=== PATIENT | female | born 1995 | race Caucasian/White ===

== ENCOUNTER 2017-04-23 13:05 | Emergency (ER) | payer OTHER ==
[2017-04-23 13:58] VITALS: BP 117/63
[2017-04-23] MEDS ORDERED: NORMAL SALINE 1000 ML 1,000 ML IV ONE (14:34)
[2017-04-23 15:20] LABS: HEMATOCRIT 41.4 % (36.0-47.0); HEMOGLOBIN 14.4 g/dL (12.0-15.5); HGB HCT DIFFERENCE 1.8; LYMPHOCYTES % (AUTO) 14.4 % (13-45); MEAN CORPUSCULAR HEMOGLOBIN 30.6 pg (27.0-33.4); MEAN CORPUSCULAR HGB CONC 34.8 g/dL (32.0-36.0); MEAN CORPUSCULAR VOLUME 88 fl (80-97); RED BLOOD COUNT 4.71 10^6/uL (3.72-5.28); RED CELL DISTRIBUTION WIDTH 13.7 % (11.5-14.0); WHITE BLOOD COUNT 7.9 10^3/uL (4.0-10.5)
[2017-04-23 15:21] LABS: ABSOLUTE LYMPHOCYTES (AUTO) 1.1 10^3/uL (0.5-4.7); ABSOLUTE MONOCYTES (AUTO) 0.5 10^3/uL (0.1-1.4); ABSOLUTE NEUT (AUTO) 6.1 10^3/uL (1.7-8.2); BASOPHILS % (AUTO) 0.3 % (0-2); EOSINOPHILS % (AUTO) 0.3 % (0-6)
--- NOTE | 2017-04-23 15:21 | ER Document Report ---
ED Medical Screen (RME) - General Chief Complaint: Vaginal Bleeding Stated Complaint: VAGINAL BLEEDING,FALL/HEAD INJURY Time Seen by Provider: 04/23/17 14:28 Notes: pt 11wks preg with vaginal bleeding. had syncope also TRAVEL OUTSIDE OF THE [place] IN LAST 30 DAYS: No Past Medical History - Social History Chew tobacco use (# tins/day): No Frequency of alcohol use: None Drug Abuse: None Renal/ Medical History: Denies: Hx Peritoneal Dialysis Physical Exam - Vital signs Vitals: Temp Pulse Resp BP Pulse Ox 98.4 F 81 18 117/63 99 04/23/17 13:54 04/23/17 13:54 04/23/17 13:54 04/23/17 13:54 04/23/17 13:54 Course - Vital Signs Vital signs: Temp Pulse Resp BP Pulse Ox 98.4 F 81 18 117/63 99 04/23/17 13:54 04/23/17 13:54 04/23/17 13:54 04/23/17 13:54 04/23/17 13:54 - Laboratory Result Diagrams: 04/23/17 15:01 04/23/17 15:01
[2017-04-23 15:29] LABS: AMORPHOUS SEDIMENT,URINE TRACE /HPF; APPEARANCE,URINE CLOUDY; BILIRUBIN,URINE NEGATIVE (NEGATIVE); GLUCOSE, URINE NEGATIVE (NEGATIVE); KETONES,URINE NEGATIVE (NEGATIVE); LEUKOCYTE ESTERASE,URINE TRACE (NEGATIVE); NITRITE,URINE NEGATIVE (NEGATIVE); PROTEIN,URINE NEGATIVE (NEGATIVE); URINE SPECIFIC GRAVITY 1.013; UROBILINOGEN,URINE NEGATIVE mg/dL (<2.0)
[2017-04-23 15:37] LABS: ALANINE AMINOTRANSFERASE 26 U/L (9-52); ALBUMIN 4.2 g/dL (3.5-5.0); ALKALINE PHOSPHATASE 39 U/L (38-126); ANION GAP 12 (5-19); ASPARTATE AMINO TRANSFERASE 13 U/L (14-36); BILIRUBIN,DIRECT 0.3 mg/dL (0.0-0.4); BILIRUBIN,TOTAL 0.5 mg/dL (0.2-1.3); BLOOD UREA NITROGEN 4 mg/dL (7-20); CALCIUM 9.6 mg/dL (8.4-10.2); CARBON DIOXIDE 23 mmol/L (22-30); CHLORIDE 101 mmol/L (98-107); CREATININE RESULT 0.51 mg/dL (0.52-1.25); GLUCOSE 74 mg/dL (75-110); POTASSIUM 4.2 mmol/L (3.6-5.0); SODIUM 136.4 mmol/L (137-145)
--- NOTE | 2017-04-23 17:04 | ER Document Report ---
ED GI/ - General Chief Complaint: Vaginal Bleeding Stated Complaint: VAGINAL BLEEDING,FALL/HEAD INJURY Time Seen by Provider: 04/23/17 14:28 Notes: Patient is a 13- who presents emergency department complaining of vaginal bleeding. She denies any vaginal week 22-year-old female pain, discharge, pelvic pain, urinary symptoms. States that she woke up at approximately 12 this afternoon and noticed light spotting when she went to the bathroom. After that she states she went on to her kitchen and she admits that she was nervous and she states that she had an episode of syncope. Patient states she does have a history of vasovagal syncope. States that she remembers hitting her head and her witnessed the fall and that she was out for less than a minute. She denies any nausea, vomiting, abdominal pain, headache, neck pain, altered mental status or confusion. [facility] TRAVEL OUTSIDE OF THE [place] IN LAST 30 DAYS: No Past Medical History - Social History Smoking Status: Never Smoker Chew tobacco use (# tins/day): No Frequency of alcohol use: None Drug Abuse: None Family History: Reviewed & Not Pertinent Patient has suicidal ideation: No Patient has homicidal ideation: No Renal/ Medical History: Denies: Hx Peritoneal Dialysis Review of Systems - Review of Systems Constitutional: No symptoms reported Cardiovascular: No symptoms reported Respiratory: No symptoms reported Gastrointestinal: No symptoms reported Female Genitourinary: See HPI Neurological/Psychological: See HPI -: Yes All other systems reviewed and negative Physical Exam - Vital signs Vitals: Temp Pulse Resp BP Pulse Ox 98.4 F 81 18 117/63 99 04/23/17 13:54 04/23/17 13:54 04/23/17 13:54 04/23/17 13:54 04/23/17 13:54 - Notes Notes: PHYSICAL EXAM GENERAL: Alert, interacts well. HEAD: Normocephalic, atraumatic. NECK: Full range of motion. Supple. Trachea midline. LUNGS: Clear to auscultation bilaterally, no wheezes, rales, or rhonchi. No respiratory distress. HEART: Regular rate and rhythm. No murmurs, gallops, or rubs. ABDOMEN: Soft, nondistended, nontender. No guarding, rebound, or rigidity.. Bowel sounds present in all 4 quadrants. EXTREMITIES: Moves all 4 extremities spontaneously. No edema, radial and dorsalis pedis pulses 2/4 bilaterally. No cyanosis. NEUROLOGICAL: Alert and oriented x4. Normal speech. PSYCH: Normal affect, normal mood. SKIN: Warm, dry, normal turgor. No rashes or lesions noted. Course - Re-evaluation Re-evalutation: 04/23/17 18:34 Patient is a 22-year-old female who is hemodynamically stable, no acute distress and afebrile. CBC without evidence of anemia, leukocytosis. Chemistry stable with a beta-hCG of [id number]. Urinalysis clean with trace leukoesterase. Patient is asymptomatic. Transvaginal ultrasound without evidence of subchorionic hemorrhage. Evidence of living IUP approximately 11-1/2 weeks gestation with a heart rate of 158. Patient has remained asymptomatic in the department. Will discharge home with instruction to follow-up with PLUG ASSEMBLER. Patient agrees with plan. - Vital Signs Vital signs: Temp Pulse Resp BP Pulse Ox 98.4 F 81 18 117/63 99 04/23/17 13:54 04/23/17 13:54 04/23/17 13:54 04/23/17 13:54 04/23/17 13:54 - Laboratory Result Diagrams: 04/23/17 15:01 04/23/17 15:01 Laboratory results interpreted by me: 04/23/17 04/23/17 15:01 15:01 Sodium 136.4 L BUN 4 L Creatinine 0.51 L Glucose 74 L AST 13 L Beta HCG, Quant 956852.00 H Urine Blood MODERATE H Ur Leukocyte Esterase TRACE H Urine Ascorbic Acid 40 H Discharge - Discharge Clinical Impression: Vaginal bleeding Condition: Good Disposition: HOME, SELF-CARE Additional Instructions: : You are . care is best started as early in as possible. If you're unsure about continuing this , you should discuss this with your physician or with melter supervisor open hearth furnace at [facility]. You should take only medications approved by your physician. Acetaminophen can safely be taken for minor pains. As a rule, medication for chronic conditions such as asthma or seizures can safely be continued. You should discuss with the physician every medicine you take. Any regular exercise program can be continued. Talk to your physician, however, before engaging in competitive or demanding sports. Alcohol, smoking, and "street drugs" are dangerous to your baby. Cocaine is especially dangerous. Don't use any illicit drugs! BLEEDING DURING EARLY : You have been evaluated for passing blood while . While we take this symptom very seriously, most women with your degree of bleeding will go on to have a perfectly normal baby. At this time, there is no indication that a miscarriage will occur. (A miscarriage occurs when the fetus is abnormal. There is no medicine or treatment to prevent it.) A more serious cause of bleeding is tubal (or ectopic) . An ultrasound usually can show whether the is in the uterus or in the tube. Sometimes in early , no fetus is seen. In this case, careful follow-up, including repeat blood tests and repeat ultrasound, is necessary. Do not douche or have sex for at least a week, or until OK'd by the doctor. Don't use tampons. Call the doctor or return for re-examination if there is an increase in bleeding or cramping, extreme weakness, fainting, new abdominal pain, fever, or passage of tissue. RHOGAM: Rhogam is given to a woman who has Rh negative blood type when she has vaginal bleeding during her or at the time of the delivery of her baby. If a woman is Rh negative, her body will form antibodies against red blood cells from an Rh positive fetus or baby that mix with her blood during a threatened or actual miscarraige or delivery. These antibodies will remain in the woman's body forever and will attack any future Rh positive fetus preventing it from developing into a normal baby. Rhogam is given to prevent the mother's body from forming these antibodies. FOLLOW-UP CARE: If you have been referred to a physician for follow-up care, call the physician s office for an appointment as you were instructed or within the next two days. If you experience worsening or a significant change in your symptoms (very heavy bleeding with large clots of blood, passage of tissue, more severe abdominal / pelvic pain or cramping, feeling faint or severe weakness, fever, etc.), notify the physician immediately or return to the Emergency Department at any time for re-evaluation. OBSTETRIC-GYNECOLOGIC (OB-[facility]) PHYSICIANS IN BOWLEGS: [facility] [address] [place] [address] [phone] For active duty and dependents diagnosed with a threatened or miscarriage, you should follow up in the following manner: Standard patients who have a local civilian provider should follow up with that provider. Patients of the Family Practice Clinic should call your Team Nurse at 8: 00 am the following morning for further instructions. If you are neither a Standard patient nor a patient of the Family Practice Clinic, you should follow up at the [facility] ([facility]) . Patients already enrolled in the [facility] OB Clinic, Prime patients not assigned to the Family Practice Clinic, and Active Duty patients not assigned to Family Practice Clinic should report to the [facility] Lab at 8:00 am the next morning that the [facility] OB Clinic is open and then you will be seen in the OB Clinic at 11:00 am. Prescriptions: Cephalexin Monohydrate [Keflex 500 mg Capsule] 500 mg PO BID #6 capsule Referrals: ROSSY BOYD MD [Primary Care Provider] - Follow up in 3-5 days
--- NOTE | 2017-04-23 18:01 | RADIOLOGY REPORT (SQ) ---
EXAM DESCRIPTION: U/S OB TRANSVAGINAL W/O DOP COMPLETED DATE/TIME: 04/23/2017 5:47 pm REASON FOR STUDY: preg/bleeding COMPARISON: None. TECHNIQUE: Transabdominal static and realtime grayscale images acquired of the pelvis. Additional se lected spectral and color Doppler images recorded. All images stored on PACs. bHCG: Not applicable. LIMITATIONS: None. FINDINGS: FETUS: Living intrauterine . EGA: 11 weeks 0 days by crown-rump length. 12 weeks 1 day by gestational sac size. ANYI: 11/08/2017 FHR: 158 beats per minute. SUBCHORIONIC BLEED: No SIZE OF BLEED: Not applicable. UTERUS: No masses. No anomalies. CERVICAL LENGTH: 3.9 cm PE Closed. RIGHT ADNEXA: Ovaries not seen. No adnexal free fluid. No adnexal masses. LEFT ADNEXA: Ovaries not seen. No adnexal free fluid. No adnexal masses. FREE FLUID: None. OTHER: No other significant finding. IMPRESSION: There is a live intrauterine gestation of about 11 weeks 4 days with estimated date of d elivery of 11/08/2017. The cervix is closed. Trimester of : First - 0 to 13 weeks. TECHNICAL DOCUMENTATION: JOB ID: [id number] [employer] ( [employer] )- All Rights Reserved
[2017-04-23] MEDS ORDERED: CEPHALEXIN 500 MG CAPSULE PO ONE (18:40)
== END 2017-04-23 19:12 | disposition home or self-care (01) ==
LOC: ER 13:05
DX: O26.859 Spotting complicating pregnancy, unspecified trimester (principal); O26.899 Other specified pregnancy related conditions, unspecified trimester; R55 Syncope and collapse; Z3A.00 Weeks of gestation of pregnancy not specified
CPT/HCPCS: 99284; 96360; 86900; 86901; 36415; 84702; 85025; 80053; 81001; 76817; J7030

== ENCOUNTER 2017-09-28 13:56 | Emergency (ER) | payer OTHER ==
--- NOTE | 2017-09-28 15:42 | ER Document Report ---
ED GI/ - General Chief Complaint: Nausea/Vomiting/Diarrhea Stated Complaint: VOMITING/DIAHHREA Time Seen by Provider: 09/28/17 15:30 Mode of Arrival: Ambulatory Information source: Patient, [facility] Records Notes: This 22-year-old female patient is 34 weeks . She reports onset last 09/20/2017 of nausea vomiting and diarrhea. She reports nausea vomiting most days, diarrhea at least 3 times every day. When asked to describe the diarrhea she reports it is normal looking diarrhea. She does have Zofran to take for her nausea vomiting. She had hyperemesis early but has not really had any problems during the third trimester. There is no fever, there is no abdominal pain, no cramping, no vaginal bleeding. States she is a little nauseous at this time. TRAVEL OUTSIDE OF THE [place] IN LAST 30 DAYS: No - Related Data Allergies/Adverse Reactions: No Known Allergies Allergy (Verified 09/28/17 13:57) Past Medical History - General Information source: Patient, [facility] Records - Social History Smoking Status: Never Smoker Cigarette use (# per day): No Chew tobacco use (# tins/day): No Smoking Education Provided: No Frequency of alcohol use: None Drug Abuse: None Occupation: Unemployed Lives with: Spouse/Significant other Family History: Reviewed & Not Pertinent Patient has suicidal ideation: No Patient has homicidal ideation: No - Medical History Medical History: Negative Psychiatric Medical History: Reports: None Surgical Hx: Negative Review of Systems - Review of Systems Constitutional: No symptoms reported EENT: No symptoms reported Cardiovascular: No symptoms reported Respiratory: No symptoms reported Gastrointestinal: See HPI Genitourinary: No symptoms reported Female Genitourinary: See HPI, - 34 weeks Musculoskeletal: No symptoms reported Skin: No symptoms reported Hematologic/Lymphatic: No symptoms reported Neurological/Psychological: No symptoms reported Physical Exam - Vital signs Vitals: Temp Pulse Resp BP Pulse Ox 98.5 F 84 18 109/70 98 09/28/17 14:31 09/28/17 14:31 09/28/17 14:31 09/28/17 14:31 09/28/17 14:31 Interpretation: Normal - General General appearance: Appears well, Alert In distress: None - HEENT Head: Normocephalic, Atraumatic Eyes: Normal Pupils: PERRL Neck: Normal - Respiratory Respiratory status: No respiratory distress - Cardiovascular Rhythm: Regular - Abdominal Inspection: Gravid female Bowel sounds: Normal Tenderness: Nontender - Back Back: Normal - Extremities General upper extremity: Normal inspection General lower extremity: Normal inspection - Neurological Neuro grossly intact: Yes - Psychological Associated symptoms: Normal affect, Normal mood - Skin Skin Temperature: Warm Skin Moisture: Dry Skin Color: Normal Course - Vital Signs Vital signs: Temp Pulse Resp BP Pulse Ox 98.5 F 84 18 109/70 98 09/28/17 14:31 09/28/17 14:31 09/28/17 14:31 09/28/17 14:31 09/28/17 14:31 - Laboratory Result Diagrams: 09/28/17 16:15 09/28/17 16:15 Laboratory results interpreted by me: 09/28/17 09/28/17 16:15 16:15 BUN 6 L Creatinine 0.50 L Alkaline Phosphatase 132 H Urine Protein 30 H Urine Urobilinogen 4.0 H Ur Leukocyte Esterase TRACE H Discharge - Discharge Clinical Impression: Nausea, vomiting and diarrhea, Dehydration, Viral syndrome, Third trimester at less than 36 weeks Urinary tract infection Qualifiers: Urinary tract infection type: site unspecified Hematuria presence: without hematuria Qualified Code(s): N39.0 - Urinary tract infection, site not specified Condition: Stable Disposition: HOME, SELF-CARE Additional Instructions: Gastroenteritis: You most likely have gastroenteritis. This is an irritation of the stomach and intestinal tract. It's usually caused by a virus, but can also be caused by bacteria, toxins that cause food poisoning, or excessive alcohol intake. Symptoms may include fever, painful abdominal cramps, nausea, vomiting , and diarrhea. Start with small amounts (two to six ounces) of clear liquids (soft drinks , herb teas, broth, etc). Try to take fluids frequently even if you are vomiting, to prevent dehydration. When liquids are being consumed successfully , advance to small amounts of bland food (mashed potato, toast) for 6 - 12 hours. Gastroenteritis rarely requires medication. It goes away by itself. Use good handwashing so you don't spread germs. Wash underwear in very hot water. If symptoms are severe, talk to the doctor. Call your physician if blood appears in your vomitus or stool, if vomiting lasts longer than 24 hours, if the abdominal pain worsens or becomes localized to one area, or if you develop high fever. Urinary Tract Infection: Your evaluation indicates that you have a urinary tract infection. This is due to germs growing in the bladder. This is a common problem. This infection usually responds quickly to antibiotics. Your antibiotic should be taken exactly as prescribed. Drink plenty of fluids -- three to four quarts a day. Occasionally, a bladder anesthetic will be prescribed to help stop the feeling of urgency until the antibiotic has a chance to clear the infection. This may cause your urine to be dark orange. Certain urine infections require a culture. If the doctor obtained a culture, the results will be back in two days. You should call to see if a change in treatment is needed. A repeat urinalysis after you finish treatment is often recommended. The physician will let you know if further testing is required. Call the doctor if you develop fever, chills, flank pain, inability to urinate, or blood in the urine. Drink cool liquids today. Take medication as prescribed for the urine infection. Follow-up with your PATIENT CASE MANAGER doctor this week for recheck. RETURN TO THE EMERGENCY ROOM IF ANY NEW OR WORSENING SYMPTOMS. Prescriptions: Cephalexin Monohydrate [Keflex 500 mg Capsule] 500 mg PO BID #10 capsule
[2017-09-28] MEDS ORDERED: ONDANSETRON HCL INJ/PF 4 MG/2 ML SDV IV ONE (16:03)
[2017-09-28] MEDS ORDERED: NORMAL SALINE 1000 ML 1,000 ML IV ONE (16:03)
[2017-09-28 16:54] LABS: APPEARANCE,URINE SLIGHTLY-CLOUDY; BILIRUBIN,URINE NEGATIVE (NEGATIVE); COLOR,URINE YELLOW; GLUCOSE, URINE NEGATIVE (NEGATIVE); KETONES,URINE NEGATIVE (NEGATIVE); LEUKOCYTE ESTERASE,URINE TRACE (NEGATIVE); NITRITE,URINE NEGATIVE (NEGATIVE); PROTEIN,URINE 30 mg/dL (NEGATIVE)
[2017-09-28 16:58] LABS: ABSOLUTE EOSINOPHILS # (AUTO) 0.1 10^3/uL (0.0-0.6); ABSOLUTE LYMPHOCYTES (AUTO) 1.2 10^3/uL (0.5-4.7); ABSOLUTE MONOCYTES (AUTO) 0.8 10^3/uL (0.1-1.4); ABSOLUTE NEUT (AUTO) 5.6 10^3/uL (1.7-8.2); BASOPHILS % (AUTO) 0.1 % (0-2); EOSINOPHILS % (AUTO) 1.7 % (0-6); HEMATOCRIT 36.5 % (36.0-47.0); HEMOGLOBIN 12.9 g/dL (12.0-15.5); LYMPHOCYTES % (AUTO) 15.6 % (13-45); MEAN CORPUSCULAR HEMOGLOBIN 31.8 pg (27.0-33.4); MEAN CORPUSCULAR HGB CONC 35.3 g/dL (32.0-36.0); MEAN CORPUSCULAR VOLUME 90 fl (80-97); MONOCYTES % (AUTO) 10.3 % (3-13); PLATELET COUNT 245 10^3/uL (150-450); RED BLOOD COUNT 4.04 10^6/uL (3.72-5.28); RED CELL DISTRIBUTION WIDTH 13.3 % (11.5-14.0); SEGMENTED NEUTROPHILS % (AUTO) 72.3 % (42-78); TOTAL CELLS COUNTED % (AUTO) 100 %; WHITE BLOOD COUNT 7.7 10^3/uL (4.0-10.5)
[2017-09-28 17:01] LABS: ALANINE AMINOTRANSFERASE 20 U/L (9-52); ALBUMIN 3.6 g/dL (3.5-5.0); ALKALINE PHOSPHATASE 132 U/L (38-126); ANION GAP 8 (5-19); ASPARTATE AMINO TRANSFERASE 18 U/L (14-36); BILIRUBIN,DIRECT 0.2 mg/dL (0.0-0.4); BILIRUBIN,TOTAL 0.4 mg/dL (0.2-1.3); BLOOD UREA NITROGEN 6 mg/dL (7-20); CARBON DIOXIDE 25 mmol/L (22-30); CHLORIDE 105 mmol/L (98-107); GLUCOSE 84 mg/dL (75-110); POTASSIUM 3.7 mmol/L (3.6-5.0); SODIUM 138.2 mmol/L (137-145); TOTAL PROTEIN 6.8 g/dL (6.3-8.2)
[2017-09-28] MEDS ORDERED: DEXTROSE 5%-LACTATED RINGERS 1,000 ML IV ONE (17:05)
[2017-09-28] MEDS ORDERED: CEPHALEXIN 500 MG CAPSULE PO ONE (17:52)
[2017-09-28 18:34] VITALS: BP 103/56
== END 2017-09-28 18:40 | disposition home or self-care (01) ==
LOC: ER 13:56
DX: O23.43 Unspecified infection of urinary tract in pregnancy, third trimester (principal); O98.513 Other viral diseases complicating pregnancy, third trimester; B34.9 Viral infection, unspecified; E86.0 Dehydration; O26.93 Pregnancy related conditions, unspecified, third trimester; R11.2 Nausea with vomiting, unspecified; R19.7 Diarrhea, unspecified; Z3A.34 34 weeks gestation of pregnancy
CPT/HCPCS: 99284; 96361; 96374; 36415; 87045; 87086; 89055; 87205; 85025; 80053; 81001; J2405; J7030

== ENCOUNTER 2017-10-16 22:48 | Outpatient (CLI) | payer OTHER ==
[2017-10-16 23:12] LABS: APPEARANCE,URINE CLEAR; BILIRUBIN,URINE NEGATIVE (NEGATIVE); COLOR,URINE STRAW; GLUCOSE, URINE NEGATIVE (NEGATIVE); KETONES,URINE NEGATIVE (NEGATIVE); LEUKOCYTE ESTERASE,URINE NEGATIVE (NEGATIVE); NITRITE,URINE NEGATIVE (NEGATIVE); PROTEIN,URINE NEGATIVE (NEGATIVE); URINE SPECIFIC GRAVITY 1.006; UROBILINOGEN,URINE NEGATIVE mg/dL (<2.0)
[2017-10-16 23:20] LABS: AMNISURE (ROM) NEGATIVE (NEGATIVE)
[2017-10-16 23:26] LABS: URINE AMPHETAMINES SCREEN NEGATIVE; URINE BARBITURATES SCREEN NEGATIVE; URINE BENZODIAZEPINES SCREEN NEGATIVE; URINE COCAINE SCREEN NEGATIVE; URINE MARIJUANA (THC) SCREEN NEGATIVE; URINE METHADONE SCREEN NEGATIVE; URINE PHENCYCLIDINE SCREEN NEGATIVE
--- NOTE | 2017-10-16 23:58 | Non Stress Test Report ---
Non Stress Test Datetime Report Generated by CPN: 10/16/2017 23:58 DEMOGRAPHIC Test Number: 1 EGA NST: 36.4 INDICATION Indication for Study: Ordered by Provider URINE RESULTS Urine Protein, NST: Negative Urine Ketones - NST: Negative Urine Glucose - NST: Negative Urine Blood - NST: Negative MONITORING Monitor Explained: Monitor Explained; Test Explained; Patient Verbalized Understanding Time on Monitor: 10/16/2017 23:02 Time off Monitor: 10/16/2017 23:45 NST Duration: 43 NST INTERVENTIONS NST Interventions: PO Hydration; Reposition Patient Physician Notified NST: Dr Sauceda BABY A: [id number] BABY A Movement : Present Contraction Frequency : rare FHR Baseline : 145 Accelerations : 15X15 Decelerations : None Variability : Moderate 6-25bpm NST Review: Meets Criteria for Reactive NST NST Review and Verified By : CHARLENE Adams NST Results: Reactive NST REPORT Report Trigger: Send Report
== END 2017-10-16 23:53 | disposition home or self-care (01) ==
LOC: LC 22:48
PROVIDERS: ATTEND Obstetrics & Gynecology
PROC: 4A1HXCZ Monitoring of Products of Conception, Cardiac Rate, External Approach (ICD-10-PCS; principal; 2017-10-16)
DX: O47.03 False labor before 37 completed weeks of gestation, third trimester (principal); Z3A.36 36 weeks gestation of pregnancy
CPT/HCPCS: 59025; 80307; 81001; 84112

== ENCOUNTER 2017-10-24 08:06 | Inpatient (IN) | payer OTHER ==
[2017-10-24 10:30] LABS: APPEARANCE,URINE CLEAR; BILIRUBIN,URINE NEGATIVE (NEGATIVE); COLOR,URINE STRAW; GLUCOSE, URINE NEGATIVE (NEGATIVE); KETONES,URINE NEGATIVE (NEGATIVE); LEUKOCYTE ESTERASE,URINE MODERATE (NEGATIVE); NITRITE,URINE NEGATIVE (NEGATIVE); PROTEIN,URINE NEGATIVE (NEGATIVE); URINE SPECIFIC GRAVITY 1.006; UROBILINOGEN,URINE NEGATIVE mg/dL (<2.0)
[2017-10-24 10:51] LABS: URINE AMPHETAMINES SCREEN NEGATIVE; URINE BARBITURATES SCREEN NEGATIVE; URINE BENZODIAZEPINES SCREEN NEGATIVE; URINE COCAINE SCREEN NEGATIVE; URINE MARIJUANA (THC) SCREEN NEGATIVE; URINE METHADONE SCREEN NEGATIVE; URINE PHENCYCLIDINE SCREEN NEGATIVE
[2017-10-24] MEDS ORDERED: PENICILLIN G POTASSIUM 5,000,000 UNIT in DEXTROSE 5%-WATER 100 ML IV ONE (10:55)
[2017-10-24] MEDS ORDERED: RINGERS SOLUTION,LACTATED 1,000 ML IV ONE (10:55)
[2017-10-24] MEDS ORDERED: MISOPROSTOL 0.2 MG TABLET ONE (11:05)
[2017-10-24] MEDS ORDERED: PENICILLIN G-K 5 MILLION UNIT VIAL ONE ×2 (11:06→15:45)
[2017-10-24] MEDS ORDERED: OXYTOCIN/NORMAL SALINE 20 UNIT/1,000 ML RTUINJ ONE (11:06)
[2017-10-24] MEDS ORDERED: LIDOCAINE 1% INJ-PF (10 MG/ML) 30 ML SDV ONE (11:06)
[2017-10-24 11:17] LABS: ABSOLUTE BASOPHILS # (AUTO) 0.1 10^3/uL (0.0-0.2); ABSOLUTE LYMPHOCYTES (AUTO) 1.3 10^3/uL (0.5-4.7); ABSOLUTE MONOCYTES (AUTO) 0.9 10^3/uL (0.1-1.4); ABSOLUTE NEUT (AUTO) 11.9 10^3/uL (1.7-8.2); BASOPHILS % (AUTO) 0.4 % (0-2); EOSINOPHILS % (AUTO) 0.3 % (0-6); HEMATOCRIT 36.2 % (36.0-47.0); HEMOGLOBIN 12.5 g/dL (12.0-15.5); LYMPHOCYTES % (AUTO) 8.8 % (13-45); MEAN CORPUSCULAR HEMOGLOBIN 31.1 pg (27.0-33.4); MEAN CORPUSCULAR HGB CONC 34.6 g/dL (32.0-36.0); MEAN CORPUSCULAR VOLUME 90 fl (80-97); MONOCYTES % (AUTO) 6.4 % (3-13); PLATELET COUNT 209 10^3/uL (150-450); RED BLOOD COUNT 4.02 10^6/uL (3.72-5.28); RED CELL DISTRIBUTION WIDTH 13.7 % (11.5-14.0); SEGMENTED NEUTROPHILS % (AUTO) 84.1 % (42-78); TOTAL CELLS COUNTED % (AUTO) 100 %; WHITE BLOOD COUNT 14.2 10^3/uL (4.0-10.5)
--- NOTE | 2017-10-24 11:20 | Admission Physical ---
Datetime Report Generated by CPN: 10/24/2017 11:20 CURRENT ADMISSION Chief Complaint: Uterine Contractions Indication for Induction: Not Applicable Admit Impression : Term, Intrauterine Admit Plan: Admit to Unit; Initiate Labor Protocol ALLERGIES Medication Allergies: No Medication Allergies: No Known Allergies (10/24/2017) Latex: No Latex Allergies Food Allergies: none Environmental Allergies: none OBSTETRICAL HISTORY EDC: 11/09/2017 00:00 : 1 Para: 0 Term: 0 : 0 SAB: 0 IAB: 0 Ectopic: 0 Livin Cesareans: 0 VBACs: 0 Multiple Births: 0 Gestational Diabetes: No Rh Sensitization: No Incompetent Cervix: No ESTER: No Infertility: No ART Treatment: No Uterine Anomaly: No IUGR: No Hx Previous C/S: No Macrosomia: No Hx Loss/Stillborn: No PIH: No Hx : No Placenta Previa/Abruption: No Depression/PP Depression: No PTL/PROM: No Post Hemorrhage: No Current Procedures: Ultrasound; NST Obstetrical History Comments: G1: Current with no issues SEE RECORDS Alcohol: No Marijuana : No Cocaine: No Other Illicit Drugs: No Cigarettes: Never Smoker. [id number] MEDICAL HISTORY Diabetes: No Blood Transfusion: No Pulmonary Disease (Asthma, TB): No Breast Disease: No Hypertension: No Landman Surgery: No Heart Disease: No Hosp/Surgery: No Autoimmune Disorder: No Anesthetic Complications: No Kidney Disease: Yes Abnormal Pap Smear: No Neuro/Epilepsy: Yes Psychiatric Disorders: Yes Other Medical Diseases: No Hepatitis/Liver Disease: No Significant Family History: No Varicosities/Phlebitis: No Trauma/Violence : No Thyroid Dysfunction: No Medical History Comments: UTI, seizure 2011, anxiety, depression INFECTIOUS HISTORY Gonorrhea: No Genital Herpes: No Chlamydia: No Tuberculosis: No Syphilis: No Hepatitis: No HIV/AIDS Exposure: No Rash or Viral Illness: No HPV: No PHYSICAL EXAM General: Normal HEENT: Normal Neurologic: Normal Thyroid: Deferred Heart: Normal Lungs: Normal Breast: Deferred Back: Normal Abdomen: Normal Genitourinary Exam: Normal Extremities: Normal DTRs: Deferred Pelvic Type: Adequate Vital Signs: Reviewed; Within Normal Limits VAGINAL EXAM Dilatation: 8 Effacement: 80 Station: -2 Contraction Comments: q3-4 mins MEMBRANES Membranes: Bulging FETUS A EGA: 37.5 Monitoring: External US FHR- Baseline: 140 Decelerations: None FHR Category: Category I Estimated Weight (gm): 3100 Presentation: Vertex Presentation- Other: by SVE of advertising space clerk Comment: admit for active labor at term PLANS FOR LABOR AND DELIVERY Labor and Delivery: None Pain Management: Epidural Feeding Preference: Breast Circumcision: N/A INFORMED CONSENT Assignment: Lyndsay Sauceda MD Signature: with User ID: Jay Jay : with User ID: Jay Jay
[2017-10-24] MEDS ORDERED: EPHEDRINE SULFATE INJ 50 MG/1 ML AMPULE ONE (12:06)
[2017-10-24] MEDS ORDERED: FENTANYL CITRATE INJ/PF 100 MCG/2 ML AMPUL ONE (12:06)
[2017-10-24] MEDS ORDERED: PHENYLEPHRINE HCL INJ/PF 10 MG/1 ML SDV ONE (12:07)
[2017-10-24] MEDS ORDERED: BUPIVACAINE HCL 0.25 % INJ/PF (2.5 MG/1 ML) 30 ML VIAL ONE (12:07)
[2017-10-24] MEDS ORDERED: FENTANYL/BUPIVACAINE/NS/PF 300 MCG/150 ML RTUINJ EPI ONE (12:07)
[2017-10-24] MEDS ORDERED: LIDOCAINE 1.5%/EPINEPHRINE INJ-PF 30 ML SDV ONE (12:10)
[2017-10-24] MEDS ORDERED: OXYTOCIN/NORMAL SALINE 20 UNIT/1,000 ML RTUINJ IV PRN ×2 (15:00→17:47)
--- NOTE | 2017-10-24 15:12 | L&D Progress Notes ---
PROGRESS NOTES Datetime Report Generated by CPN: 10/24/2017 15:11 PROGRESS NOTE Impression: Normal Progression of Labor Plan: Augmentation Informed Consent Obtained: Vaginal Delivery Vital Signs : Reviewed; Within Normal Limits Comment: test push with moderate effort. contractions q 2-3 mins, will give pitocin augmentation for pushing, pt agrees. anticipate VAGINAL EXAM Dilatation: 8 Effacement: 80 Station: -2 Contractions: q 2-3 mins Contractions: q3-4 mins MEMBRANES Membranes: Bulging Amniotic Fluid Color: Meconium, Light FETUS A FHR - Baseline: 145 Accelerations: 10X10 Decelerations: Variable FHR Category: Category II : 37+5 : 37+5 Estimated Weight (gm): 3100 Presentation: Vertex Presentation- Other: by SVE of RN SIGNATURE SIGNATURE: [id number];[id number];[id number] SIGNATURE: ,[id number];[id number] SIGNATURE: [id number] Assignment: Lyndsay Sauceda MD Signature: with User ID: [email or web address] : with User ID: [email or web address]
[2017-10-24] MEDS ORDERED: MAGNESIUM HYDROXIDE SUSP 30 ML UDCUP PO PRN (17:47)
[2017-10-24] MEDS ORDERED: BENZOCAINE/MENTHOL AEROSOL SPRAY 56 ML TOP PRN (17:47)
[2017-10-24] MEDS ORDERED: DIBUCAINE 1% OINTMENT 28 GM TP PRN (17:47)
[2017-10-24] MEDS ORDERED: ACETAMINOPHEN WITH CODEINE #3 TABLET PO PRN ×2 (17:47)
[2017-10-24] MEDS ORDERED: PROMETHAZINE HCL 25 MG SUPP.RECT PR PRN (17:47)
[2017-10-24] MEDS ORDERED: GLYCERIN/WITCH HAZEL LEAF 1 EACH MED..PAD TP PRN (17:47)
[2017-10-24] MEDS ORDERED: DIPH/PERTUSS(ACELL)/TETANUS VAC/PF 0.5 ML SYR (>=10YO) IM PRN (17:47)
[2017-10-24] MEDS ORDERED: PROMETHAZINE HCL INJ 25 MG/1 ML VIAL IV PRN (17:47)
[2017-10-24] MEDS ORDERED: NA PHOS,M-B/NA PHOS,DI-BA (ADULT) 133 ML ENEMA PR PRN (17:47)
[2017-10-24] MEDS ORDERED: ACETAMINOPHEN 650 MG SUPP.RECT PR PRN (17:47)
[2017-10-24] MEDS ORDERED: MEASLES,MUMPS&RUBELLA VACC/PF 0.5 ML VIAL SUBCUT PRN (17:47)
[2017-10-24] MEDS ORDERED: PROMETHAZINE HCL 25 MG TABLET PO PRN (17:47)
[2017-10-24] MEDS ORDERED: PSEUDOEPHEDRINE HCL 30 MG TABLET PO PRN (17:47)
[2017-10-24] MEDS ORDERED: DIPHENHYDRAMINE HCL 25 MG CAPSULE PO PRN (17:47)
[2017-10-24] MEDS ORDERED: ZOLPIDEM TARTRATE 5 MG TABLET PO PRN (17:47)
--- NOTE | 2017-10-24 18:37 | Delivery Summary ---
Del Sum A-C Datetime Report Generated by CPN: 10/24/2017 18:37 DELIVERY PERSONNEL DELIVERY PERSONNEL: [id number] Delivery Doctor:: Halley Ramirez CNM Labor and Delivery Nurse:: Gayathri Lee RNinsecticide expert Nurse:: CHARLENE Jaime Tech/ETHNOARCHAEOLOGIST: Ericara Gamaliel CNA II MATERNAL INFORMATION Delivery Anesthesia: Epidural Maternal Complications: None Provider Comments: FREIDA VIABLE FEMALE WITH SPONTANEOUS BREATHING BUT SHALLOW CRY. CORD DOUBLE CLAMPED AND CUT. SPONTANEOUS INTACT PLACENTA DELIVERED INTACT WITH 3VC. NURSERY CALLED TO ASSESS BABY DUE TO GRUNTING AND SHALLOW CRY. MOTHER AND INFANT STABLE IN L_D #6. LABOR SUMMARY EDC: 11/09/2017 00:00 No. Babies in Womb: 1 Attempted: No Labor Anesthesia: Epidural LABOR INFORMATION Onset of Labor: 10/24/2017 12:01 Complete Dilatation: 10/24/2017 13:13 Oxytocin: N/A Group B Beta Strep: pos Antibiotics # of Doses: 2 Antibiotics Time of Last Dose: 1126/1548 Name of Antibiotic Given: PCN Steroids Given: None Reason Steroids Not Administered: Not Applicable MEMBRANES Membranes Rupture Method: Artificial Rupture of Membranes: 10/24/2017 13:13 Length of Rupture (hr): 3.32 Amniotic Fluid Color: Light Meconium Amniotic Fluid Amount: Large Amniotic Fluid Odor: Normal STAGES OF LABOR Stage 1 hr: 1 Stage 1 min: 12 Stage 2 hr: 3 Stage 2 min: 19 Stage 3 hr: 0 Stage 3 min: 14 Total Time in Labor hr: 4 Total Time in Labor min: 45 VAGINAL DELIVERY Episiotomy: None Laceration #1: Vaginal Laceration Extension #1: First Degree Laceration Repair: Yes Laceration Repair Note: FIRST DEGREE VAGINAL LACERATION REPAIED WITH 2 INTERRUPTED STITCHES OF 3.0 CHROMIC Sponge Count Correct: Yes Sharps Count Correct: Yes CSECTION DELIVERY Primary Indication: N/A Secondary Indication: N/A CSection Incidence: N/A Labor: N/A Elective: N/A CSection Incision: N/A BABY A INFORMATION Delivery Date/Time: 10/24/2017 16:32 Method of Delivery: Vaginal Born in Route : No : N/A Forceps: N/A Vacuum Extraction: N/A Shoulder Dystocia : No PRESENTATION/POSITION BABY A Presentation: Cephalic Cephalic Presentation: Vertex Vertex Position: Left Occipital Anterior Breech Presentation: N/A PLACENTA INFORMATION BABY A Placenta Delivery Time : 10/24/2017 16:46 (Annotations: Data stored by [facility] on behalf of user) Placenta Method of Delivery: Spontaneous Placenta Status: Delivered SCORES BABY A Heart Rate 1 min: >100 bpm Resp Effort 1 min: Good Cry Reflex Irritability 1 min: Cough or Sneeze or Pulls Away Muscle Tone 1 min: Some Flexion of Extremities Color 1 min: Body [place], Extremities Blue Resuscitation Effort 1 min: Tactile Stimulation SCORE 1 MIN: 8 Heart Rate 5 min: >100 bpm Resp Effort 5 min: Good Cry Reflex Irritability 5 min: Cough or Sneeze or Pulls Away Muscle Tone 5 min: Some Flexion of Extremities Color 5 min: Body [place], Extremities Blue Resuscitation Effort 5 min: Tactile Stimulation SCORE 5 MIN: 8 INFANT INFORMATION BABY A Gestational Age at Delivery: 37.5 Gestational Status: Early Term- 37- 38.6 Weeks Outcome : Liveborn Condition : Stable Infant Sex: Female IDENTIFICATION BABY A Verification Date/Time: 10/24/2017 17:18 ID Band Number: [id number] Mother's Name Verified: Yes Infant RN Verifying : A Sifuentes RN B Baidy RN WEIGHT/LENGTH BABY A Infant Birthweight (gm): 2650 Infant Weight (lb): 5 Weight (oz): 13 Length (in): 19.00 Infant Length (cm): 48.26 CORD INFORMATION BABY A No. Cord Vessels: 3 Nuchal Cord : N/A Cord Blood Taken: Yes-For Storage (Mom's Blood type +) Suction: None ASSESSMENT BABY A Skin to Skin: Yes Skin to Skin Time (min): 60 BABY B INFORMATION : N/A SIGNATURES Assignment: Lyndsay Sauceda, MD Signature: with User ID: [email or web address] : with User ID: [email or web address] : I was personally available for consultation and serving as supervising physician for the MLP.
[2017-10-24] MEDS: PENICILLIN G POTASSIUM 2,500,000 UNIT in DEXTROSE 5%-WATER 50 ML IV SCH ×3 (19:37→23:20)
[2017-10-24] MEDS: DOCUSATE SODIUM 100 MG CAPSULE PO SCH (20:34)
[2017-10-24] MEDS: FERROUS SULFATE 325 MG TABLET PO SCH (20:34)
[2017-10-24] MEDS: IBUPROFEN 800 MG TABLET PO SCH (22:22)
[2017-10-24] MEDS: FAMOTIDINE 20 MG TABLET PO SCH (22:23)
[2017-10-25] MEDS: PENICILLIN G POTASSIUM 2,500,000 UNIT in DEXTROSE 5%-WATER 50 ML IV SCH ×2 (02:27→06:56)
[2017-10-25] MEDS: IBUPROFEN 800 MG TABLET PO SCH ×3 (05:43→21:12)
[2017-10-25 07:06] LABS: HEMATOCRIT 34.9 % (36.0-47.0); HEMOGLOBIN 11.9 g/dL (12.0-15.5); MEAN CORPUSCULAR HEMOGLOBIN 31.1 pg (27.0-33.4); MEAN CORPUSCULAR HGB CONC 34.1 g/dL (32.0-36.0); MEAN CORPUSCULAR VOLUME 91 fl (80-97); PLATELET COUNT 209 10^3/uL (150-450); RED BLOOD COUNT 3.83 10^6/uL (3.72-5.28); RED CELL DISTRIBUTION WIDTH 13.8 % (11.5-14.0); WHITE BLOOD COUNT 12.9 10^3/uL (4.0-10.5)
[2017-10-25] MEDS ORDERED: PENICILLIN G-K 5 MILLION UNIT VIAL IV PRN (07:35)
--- NOTE | 2017-10-25 09:18 | PDOC PROGRESS REPORT ---
Subjective-OB Progress Note for:: 10/25/17 Subjective: reports with some difficulty-encouraged to call for help, tolerating diet, bleeding slowing, pain controlled with current meds. Physical Exam (OB) Vital Signs: Temp Pulse Resp BP Pulse Ox 97.7 F 81 16 100/49 L 98 10/25/17 07:33 10/25/17 07:33 10/25/17 07:33 10/25/17 07:33 10/25/17 07:33 Intake & Output 10/24/17 10/25/17 10/26/17 06:59 06:59 06:59 Weight 86.636 kg - Abdomen Description: Soft, Round Hernia Present: No Fundal Description: Firm, Midline Fundal Height: u/u - u/2 - Extremities Lower extremities: Austen's sign - neg Knee: Normal, Nontender Objective-Diagnostic Laboratory: 10/25/17 06:48 10/24/17 10/24/17 10/24/17 09:53 10:57 10:57 WBC 14.2 H RBC 4.02 Hgb 12.5 Hct 36.2 MCV 90 MCH 31.1 MCHC 34.6 RDW 13.7 Plt Count 209 Seg Neutrophils % 84.1 H Lymphocytes % 8.8 L Monocytes % 6.4 Eosinophils % 0.3 Basophils % 0.4 Absolute Neutrophils 11.9 H Absolute Lymphocytes 1.3 Absolute Monocytes 0.9 Absolute Eosinophils 0.0 Absolute Basophils 0.1 Urine Color STRAW Urine Appearance CLEAR Urine pH 7.0 Ur Specific [place] 1.006 Urine Protein NEGATIVE Urine Glucose (UA) NEGATIVE Urine Ketones NEGATIVE Urine Blood MODERATE H Urine Nitrite NEGATIVE Ur Leukocyte Esterase MODERATE H Blood Type AB POSITIVE Antibody Screen NEGATIVE 10/25/17 06:48 WBC 12.9 H RBC 3.83 Hgb 11.9 L Hct 34.9 L MCV 91 MCH 31.1 MCHC 34.1 RDW 13.8 Plt Count 209 Seg Neutrophils % Lymphocytes % Monocytes % Eosinophils % Basophils % Absolute Neutrophils Absolute Lymphocytes Absolute Monocytes Absolute Eosinophils Absolute Basophils Urine Color Urine Appearance Urine pH Ur Specific [place] Urine Protein Urine Glucose (UA) Urine Ketones Urine Blood Urine Nitrite Ur Leukocyte Esterase Blood Type Antibody Screen Assessment and Plan(PN) - Assessment and Plan (1) Normal vaginal delivery Is this a current diagnosis for this admission?: Yes - Time Spent with Patient Time with patient: Less than 15 minutes - Disposition Anticipated Discharge: Home Within: within 24 hours
[2017-10-25] MEDS: PRENATAL VITAMIN W DHA CAPSULE PO SCH (09:55)
[2017-10-25] MEDS: FAMOTIDINE 20 MG TABLET PO SCH ×2 (09:56→21:13)
[2017-10-25] MEDS: SENNOSIDES/DOCUSATE 8.6-50 MG 1 EACH TABLET PO SCH (09:57)
[2017-10-25] MEDS: FERROUS SULFATE 325 MG TABLET PO SCH ×2 (09:57→17:28)
[2017-10-25] MEDS: DOCUSATE SODIUM 100 MG CAPSULE PO SCH ×2 (09:58→17:29)
[2017-10-25] MEDS ORDERED: SERTRALINE HCL 50 MG TABLET PO ONE (11:30)
[2017-10-26] MEDS: IBUPROFEN 800 MG TABLET PO SCH (06:29)
--- NOTE | 2017-10-26 09:51 | PDOC DISCHARGE SUMMARY ---
Final Diagnosis Discharge Date: 10/26/17 - Final Diagnosis (1) Normal vaginal delivery Is this a current diagnosis for this admission?: Yes Discharge Data - Discharge Medication Prescriptions: Ibuprofen [Motrin 800 mg Tablet] 800 mg PO Q8 #60 tablet Home Medications: Sertraline HCl 1 tab PO DAILY 09/28/17 Vit/Iron Fum/Folic AC [ Tablet] 1 each PO DAILY 10/16/17 Ibuprofen [Motrin 800 mg Tablet] 800 mg PO Q8 #60 tablet 10/26/17 Reason(s) for Admission: Onset of Labor Procedures: NST Intrapartum Procedure(s): Spontaneous Vaginal Delivery Complication(s): Laceration-Vaginal Laceration-Degree: 1st - Diagnosis Test Laboratory: Temp Pulse Resp BP Pulse Ox 97.8 F 74 18 103/48 L 99 10/26/17 07:30 10/26/17 07:30 10/26/17 07:30 10/26/17 07:30 10/26/17 07:30 10/24/17 10/24/17 10/25/17 09:53 10:57 06:48 RBC 4.02 3.83 Hgb 12.5 11.9 L Hct 36.2 34.9 L Urine Opiates Screen NEGATIVE - Discharge information/Instructions Discharge Activity: Balance Activity w/Rest, Pelvic Rest Discharge Diet: Regular Disposition: HOME, SELF-CARE Follow up with: [facility] in: 4, Weeks
[2017-10-26] MEDS ORDERED: SERTRALINE HCL 50 MG TABLET PO SCH (10:00)
[2017-10-26 10:33] VITALS: BP 116/60
[2017-10-26] MEDS: PRENATAL VITAMIN W DHA CAPSULE PO SCH (10:39)
[2017-10-26] MEDS: FAMOTIDINE 20 MG TABLET PO SCH (10:39)
[2017-10-26] MEDS: SENNOSIDES/DOCUSATE 8.6-50 MG 1 EACH TABLET PO SCH (10:39)
[2017-10-26] MEDS: DOCUSATE SODIUM 100 MG CAPSULE PO SCH (10:40)
[2017-10-26] MEDS: FERROUS SULFATE 325 MG TABLET PO SCH (10:40)
== END 2017-10-26 11:20 | disposition home or self-care (01) | DRG 775 ==
LOC: LC 08:06 → LR 11:00 → 2S 18:48
PROVIDERS: ADMIT Obstetrics & Gynecology; ATTEND Obstetrics & Gynecology
PROC: 10E0XZZ Delivery of Products of Conception, External Approach (ICD-10-PCS; principal; 2017-10-24)
PROC: 4A1HXCZ Monitoring of Products of Conception, Cardiac Rate, External Approach (ICD-10-PCS; 2017-10-24)
PROC: 0HQ9XZZ Repair Perineum Skin, External Approach (ICD-10-PCS; 2017-10-24)
DX: O76 Abnormality in fetal heart rate and rhythm complicating labor and delivery (principal); O70.0 First degree perineal laceration during delivery; O77.0 Labor and delivery complicated by meconium in amniotic fluid; Z3A.37 37 weeks gestation of pregnancy; Z37.0 Single live birth
CPT/HCPCS: 36415; 80307; 81005; 85025; 85027; 86592; 86850; 86900; 86901; 88307; 94760; J2370; J2540; J2590; J3010; J3490